=== PATIENT | female | born 1965 | race Caucasian/White ===

== ENCOUNTER 2019-01-13 08:45 | Emergency (ER) | payer SELFPAY ==
[~2019-01-13] VITALS: Ht 152.4 cm; Wt 82.0 kg
[2019-01-13 08:53] VITALS: BP 136/82
[2019-01-13] MEDS ORDERED: ONDANSETRON 4MG ODT PO ONE (09:30)
[2019-01-13] MEDS ORDERED: KETOROLAC 60MG/2ML VIAL IM ONE (09:30)
[2019-01-13] MEDS ORDERED: HYDROCODONE/ACETAMINOPHEN 5/325MG TABLET PO ONE (09:30)
== END 2019-01-13 10:10 | disposition home or self-care (01) ==
LOC: ER 09:15
DX: G89.29 Other chronic pain (principal); M54.40 Lumbago with sciatica, unspecified side
CPT/HCPCS: 81025; 96372; 99283; J1885; Q0162

== ENCOUNTER 2020-09-02 22:29 | Emergency (ER) | payer SELFPAY ==
[~2020-09-02] VITALS: Ht 152.4 cm; Wt 99.0 kg
[2020-09-02] MEDS ORDERED: METHYLPREDNISOLONE SOD SUCC 125 MG/2 ML VIAL IV STA (23:03)
[2020-09-02] MEDS ORDERED: IPRATROPIUM BROMIDE (0.02%) 0.5MG/2.5ML NEB HHN STA (23:03)
[2020-09-02] MEDS ORDERED: MAGNESIUM 2 G PREMIX 50 ML IV ONE (23:15)
[2020-09-02 23:23] LABS: HEMATOCRIT. 42.9 % (36.0-48.0); HEMOGLOBIN. 14.6 g/dL (12.0-16.0); MEAN CORPUSCULAR HEMOGLOBIN 30.7 pg (28.0-32.0); MEAN CORPUSCULAR VOLUME 90.5 fL (81.0-99.0); MEAN PLATELET VOLUME 9.7 fl (7.4-10.4); PLATELET 225 x1000/uL (130-400); RED BLOOD CELL COUNT 4.74 mill/uL (4.2-5.4); RED CELL DISTRIBUTION WIDTH 13.4 % (11.6-14.6)
[2020-09-02] MEDS: ALBUTEROL (0.083%) 2.5MG/3ML NEB HHN SCH (23:25)
[2020-09-02 23:26] LABS: CHLORIDE 107 mEq/L (98-107)
[2020-09-03] MEDS: ALBUTEROL (0.083%) 2.5MG/3ML NEB HHN SCH ×2 (00:04→00:39)
[2020-09-03] MEDS ORDERED: P20 MT (01:06)
[2020-09-03 01:25] VITALS: BP 164/86
[2020-09-03] MEDS ORDERED: BENZ100C86 MT (01:34)
[2020-09-03 02:57] LABS: PLATELET ESTIMATE NORMAL
== END 2020-09-03 01:45 | disposition home or self-care (01) ==
LOC: ER 22:29
DX: J45.901 Unspecified asthma with (acute) exacerbation (principal); M54.30 Sciatica, unspecified side
CPT/HCPCS: 36415; 71045; 80053; 83880; 84484; 85025; 93005; 94640; 96365; 96375; 99285; J2930; J3475; Z7610

== ENCOUNTER 2020-09-24 08:44 | Emergency (ER) | payer MEDICAID ==
[~2020-09-24] VITALS: Ht 152.4 cm; Wt 90.0 kg
[~2020-09-24 08:44] MED LIST: BENZ100C86 MT; P20 MT
[2020-09-24] MEDS ORDERED: ALBUTEROL (0.083%) 2.5MG/3ML NEB HHN STA (08:59)
[2020-09-24] MEDS ORDERED: PREDNISONE 20MG TABLET PO STA (08:59)
[2020-09-24] MEDS ORDERED: IPRATROPIUM BROMIDE (0.02%) 0.5MG/2.5ML NEB HHN STA (08:59)
[2020-09-24] MEDS ORDERED: ALBU6.7H9 INH (09:52)
[2020-09-24] MEDS ORDERED: P20 MT (09:52)
[2020-09-24 10:29] VITALS: BP 149/92
== END 2020-09-24 10:29 | disposition home or self-care (01) ==
LOC: ER 08:44
DX: J45.901 Unspecified asthma with (acute) exacerbation (principal); M54.30 Sciatica, unspecified side
CPT/HCPCS: 94640; 99283; J7512; Z7610